=== PATIENT | female | born 1965 | race African-American/Black ===

== ENCOUNTER 2018-10-09 09:30 | Emergency (ER) | payer OTHER, BC ==
[~2018-10-09] VITALS: Ht 165.1 cm; Wt 90.0 kg
[~2018-10-09 09:30] MED LIST: ACETTAB3 OR; BACTRIM DS1 TAB PO; DIFLUCAN150 MG OR; DIFLUCAN150 MG PO; DOXYCYCL HYC100 MG PO; FLEXERIL OR; MEDDOSEPAK OR; MOTRIN800 MG/TAB PO; NO MEDS
[2018-10-09 10:15] LABS: GFR > 60 ML/MIN (>=60 (CALC)); GFR FOR AFR.AMER. > 60 ML/MIN (>=60 (CALC))
[2018-10-09 10:18] LABS: HEMOGLOBIN 11.5 g/dl (12.0-16.0); IMMATURE GRANULOCYTES 0.3 % (0.0-5.0); MEAN CELL VOLUME 96.6 fL CALC (80.0-100.0); MEAN CORPUSCULAR HGB CONC 31.1 g/L CALC (32.0-36.0); NEUT# 1.59 thou/uL (2.00-7.15); RED BLOOD COUNT 3.83 mill/uL (4.20-5.60); RED CELL DISTRI WIDTH 12.8 % (11.5-15.5)
[2018-10-09 10:35] LABS: ALBUMIN 4.7 g/dL (3.2-5.0); ALKALINE PHOSPHATASE 117 u/l (38-126); ANION GAP 16 (6-22 (CALC)); BILIRUBIN, TOTAL 0.5 mg/dL (0.0-1.4); BUN 11 mg/dL (7-17); BUN/CREATININE RATIO 17 (12-20 (CALC)); CARBON DIOXIDE 22 mmol/l (22-30); CHLORIDE 109 mmol/l (95-108); CREATININE 0.6 mg/dL (0.5-1.0); GFR > 60 ML/MIN (>=60 (CALC)); GFR FOR AFR.AMER. > 60 ML/MIN (>=60 (CALC)); LIPASE 136 u/l (23-300); POTASSIUM 4.5 mmol/l (3.5-5.1); SGOT/AST 33 u/l (14-36); SODIUM 142 mmol/l (137-146); TOTAL PROTEIN 7.9 g/dL (6.3-8.2)
[2018-10-09 11:06] LABS: URINE BILIRUBIN - DIPSTICK NEGATIVE (NEGATIVE); URINE BLOOD DIPSTICK TRACE-LYSED (NEGATIVE); URINE COLOR YELLOW; URINE GLUCOSE - DIPSTICK NEGATIVE (NEGATIVE); URINE KETONE NEGATIVE (NEGATIVE); URINE LEUK ESTERASE NEGATIVE (NEGATIVE); URINE NITRITE - DIPSTICK NEGATIVE (Negative); URINE PH 6.5 (4.5-8.0); URINE PROTEIN - DIPSTICK NEGATIVE (NEG-TRACE); URINE UROBILINOGEN - DIPSTICK 0.2 E.U./dL (0.2)
[2018-10-09] MEDS ORDERED: MOTRIN400 MG PO (14:11)
[2018-10-09] MEDS ORDERED: CYCLOBENZAPR5 MG PO (14:11)
[2018-10-09 14:26] VITALS: BP 154/72
== END 2018-10-09 14:40 | disposition home or self-care (01) | DRG 552 ==
LOC: ED 09:30
PROVIDERS: Family Medicine
DX: S16.1XXA Strain of muscle, fascia and tendon at neck level, initial encounter (principal); S29.012A Strain of muscle and tendon of back wall of thorax, initial encounter; S39.012A Strain of muscle, fascia and tendon of lower back, initial encounter; S76.012A Strain of muscle, fascia and tendon of left hip, initial encounter; S96.912A Strain of unspecified muscle and tendon at ankle and foot level, left foot, initial encounter; M54.2 Cervicalgia; M54.5 Low back pain; M54.6 Pain in thoracic spine; M79.642 Pain in left hand; V59.9XXA Occupant (driver) (passenger) of pick-up truck or van injured in unspecified traffic accident, initial encounter; Y92.414 Local residential or business street as the place of occurrence of the external cause; Y93.89 Activity, other specified; Y99.0 Civilian activity done for income or pay

== ENCOUNTER 2019-12-01 12:50 | Emergency (ER) | payer OTHER, BC ==
[~2019-12-01 12:50] MED LIST changes: +CYCLOBENZAPR5 MG PO; +MOTRIN400 MG PO
[2019-12-01 14:04] VITALS: BP 128/80
[2019-12-01] MEDS ORDERED: MOTRIN800 MG PO (15:08)
== END 2019-12-01 15:30 | disposition home or self-care (01) | DRG 563 ==
LOC: ED 12:50
DX: S96.912A Strain of unspecified muscle and tendon at ankle and foot level, left foot, initial encounter (principal); S80.01XA Contusion of right knee, initial encounter; F17.200 Nicotine dependence, unspecified, uncomplicated; V58.4XXA Person boarding or alighting a pick-up truck or van injured in noncollision transport accident, initial encounter; Y99.0 Civilian activity done for income or pay
CPT/HCPCS: L1830